=== PATIENT | male | born 1950 | race Caucasian/White ===

== ENCOUNTER 2017-04-11 22:41 | Observation (INO) | payer MEDICARE, BC ==
[2017-04-11 23:42] LABS: ABS Basophils 0.1 10^3/ul (0-0.2); ABS Eosinophils 0.1 10^3/ul (0-0.6); ABS Lymphocytes 1.5 10^3/ul (1.0-4.8); ABS Monocytes 0.5 10^3/ul (0-0.8); ABS Neutrophils 3.2 10^3/ul (1.5-7.7); ABS Nucleated RBC 0 10^3/ul; Eosinophil % 2.6 % (0-6); Hematocrit 39 % (42-52); Lymphocyte % 27.9 % (25-47); Mean Corpuscular HGB Conc 34 g/dl (31-36); Mean Corpuscular Hemoglobin 31 pg (27-31); Mean Corpuscular Volume 92 fL (80-94); Mean Platelet Volume 8 um3 (7.4-10.4); Nucleated Red Blood Cells % 0; Platelet Count 189 10^3/ul (150-450); Red Blood Count 4.22 10^6/ul (4.0-5.4); Red Cell Distribution Width 14 % (10.5-15); White Blood Count 5.3 10^3/ul (3.5-10.8)
[2017-04-11 23:53] LABS: INR 0.94 (0.77-1.02)
[2017-04-11 23:58] LABS: EGFR Non-African American 95.6 (>60)
--- NOTE | 2017-04-12 01:06 | ED ---
Cezar Brown Nikita, scribed for Jez Solomon MD on 04/11/17 at 2343 . GI/ HPI - HPI Summary HPI Summary: This patient is a 66 year old M presenting to ED with a chief complaint of GI bleed since yesterday. The CC is described as with cramping. The patient rates the pain 1/10 in severity. Symptoms aggravated by nothing. Symptoms alleviated by nothing. Patient reports diarrhea (dark stool, nancy red blood only with BM, 2x yesterday, 2x in the morning, 2x this evening). Patient denies CP, N/V, SOB, chills, and fever. He reports he is not on any blood thinners or protonix. PMHx of hemorrhoids, diverticulitis (bleeding now is similar to previous episode with diverticulitis). - History of Current Complaint Chief Complaint: EDGIBleed Time Seen by Provider: 04/11/17 23:14 Stated Complaint: RECTAL BLEEDING Hx Obtained From: Patient Onset/Duration: Started Days Ago, Still Present Timing: Intermittent Current Severity: Mild Vaginal Bleeding Description: Clots - nancy red with dark stool Pain Intensity: 1 Associated Signs and Symptoms: Positive: Other: - Patient reports diarrhea ( dark stool, nancy red blood only with BM, 2x yesterday, 2x in the morning, 2x this evening). Patient denies CP, N/V, SOB, chills, and fever. - Additional Pertinent History Primary Care Physician: [id number] - Allergy/Home Medications Allergies/Adverse Reactions: Allergies Allergy/AdvReac Type Severity Reaction Status Date / Time moxifloxacin [From Avelox] Allergy GI Upset Verified 04/11/17 23:00 Thxbnqg-Ifk-Uer Reductase Allergy Leg Cramps Verified 04/11/17 23:00 Inhibitor PMH/Surg Hx/FS Hx/Imm Hx Endocrine/Hematology History: Reports: Hx Diabetes - borderline Cardiovascular History: Reports: Other Cardiovascular Problems/Disorders - atrial flutter GI History: Reports: Hx Diverticulosis, Hx Gastroesophageal Reflux Disease, Hx Gastrointestinal Bleed Musculoskeletal History: Reports: Other Musculoskeletal History - spinal stenosis Sensory History: Reports: Hx Contacts or Glasses, Hx Vision Problem Opthamlomology History: Reports: Hx Contacts or Glasses, Hx Vision Problem - Immunization History Date of Tetanus Vaccine: utd Date of Influenza Vaccine: none Infectious Disease History: Yes Infectious Disease History: Denies: Traveled Outside the [place] in Last 30 Days - Family History Known Family History: Positive: Diabetes - Brother - Social History Alcohol Use: Occasionally Substance Use Type: Reports: None Smoking Status (MU): Former Smoker Review of Systems Negative: Fever, Chills Negative: Chest Pain Negative: Shortness Of Breath Positive: Diarrhea - diarrhea (dark stool, nancy red blood only with BM, 2x yesterday, 2x in the morning, 2x this evening), Other - GI bleed with cramping. Negative: Vomiting, Nausea All Other Systems Reviewed And Are Negative: Yes Physical Exam - Summary Physical Exam Summary: Appearance: Well appearing, no pain distress Skin: warm, dry, reflects adequate perfusion, No pallor Head/face: normal Eyes: EOMI, FLACO ENT: normal, moist mucous membranes Neck: supple, non-tender Respiratory: CTA, breath sounds present Cardiovascular: RRR, pulses symmetrical Abdomen: non-tender, soft Bowel: present Musculoskeletal: normal, strength/ROM intact, No LE edema Neuro: normal, sensory motor intact, A&Ox3 Rectal exam: Clots, brownish stool, not melena Triage Information Reviewed: Yes Vital Signs On Initial Exam: Initial Vitals Temp Pulse Resp BP Pulse Ox 97.6 F 61 14 115/72 100 04/11/17 22:44 04/11/17 22:44 04/11/17 22:44 04/11/17 22:44 04/11/17 22:44 Vital Signs Reviewed: Yes Diagnostics - Vital Signs Vital Signs Temp Pulse Resp BP Pulse Ox 04/11/17 23:30 61 14 114/71 96 04/11/17 23:06 64 13 106/78 97 04/11/17 23:03 61 11 98 04/11/17 22:44 97.6 F 61 14 115/72 100 - Laboratory Lab Results: Lab Results 04/11/17 04/11/17 04/11/17 Range/Units 23:15 23:15 23:15 WBC 5.3 (3.5-10.8) 10^3/ul RBC 4.22 (4.0-5.4) 10^6/ul Hgb 13.0 L (14.0-18.0) g/dl Hct 39 L (42-52) % MCV 92 (80-94) fL MCH 31 (27-31) pg MCHC 34 (31-36) g/dl RDW 14 (10.5-15) % Plt Count 189 (150-450) 10^3/ul MPV 8 (7.4-10.4) um3 Neut % (Auto) 59.8 (38-83) % Lymph % (Auto) 27.9 (25-47) % Gem % (Auto) 8.6 H (0-7) % Eos % (Auto) 2.6 (0-6) % Baso % (Auto) 1.1 (0-2) % Absolute Neuts (auto) 3.2 (1.5-7.7) 10^3/ul Absolute Lymphs (auto) 1.5 (1.0-4.8) 10^3/ul Absolute Monos (auto) 0.5 (0-0.8) 10^3/ul Absolute Eos (auto) 0.1 (0-0.6) 10^3/ul Absolute Basos (auto) 0.1 (0-0.2) 10^3/ul Absolute Nucleated RBC 0 10^3/ul Nucleated RBC % 0 INR (Anticoag Therapy) 0.94 (0.77-1.02) Sodium 137 (133-145) mmol/L Potassium 3.8 (3.5-5.0) mmol/L Chloride 106 (101-111) mmol/L Carbon Dioxide 24 (22-32) mmol/L Anion Gap 7 (2-11) mmol/L BUN 26 H (6-24) mg/dL Creatinine 0.81 (0.67-1.17) mg/dL Est GFR ( Amer) 123.0 (>60) Est GFR (Non-Af Amer) 95.6 (>60) BUN/Creatinine Ratio 32.1 H (8-20) Glucose 96 (70-100) mg/dL Lactic Acid (0.5-2.0) mmol/L Calcium 9.0 (8.6-10.3) mg/dL Total Bilirubin 0.40 (0.2-1.0) mg/dL AST 19 (13-39) U/L ALT 19 (7-52) U/L Alkaline Phosphatase 57 (34-104) U/L Total Protein 6.5 (6.4-8.9) g/dL Albumin 3.8 (3.2-5.2) g/dL Globulin 2.7 (2-4) g/dL Albumin/Globulin Ratio 1.4 (1-3) Blood Type Antibody Screen 04/11/17 04/11/17 Range/Units 23:15 23:15 WBC (3.5-10.8) 10^3/ul RBC (4.0-5.4) 10^6/ul Hgb (14.0-18.0) g/dl Hct (42-52) % MCV (80-94) fL MCH (27-31) pg MCHC (31-36) g/dl RDW (10.5-15) % Plt Count (150-450) 10^3/ul MPV (7.4-10.4) um3 Neut % (Auto) (38-83) % Lymph % (Auto) (25-47) % Gem % (Auto) (0-7) % Eos % (Auto) (0-6) % Baso % (Auto) (0-2) % Absolute Neuts (auto) (1.5-7.7) 10^3/ul Absolute Lymphs (auto) (1.0-4.8) 10^3/ul Absolute Monos (auto) (0-0.8) 10^3/ul Absolute Eos (auto) (0-0.6) 10^3/ul Absolute Basos (auto) (0-0.2) 10^3/ul Absolute Nucleated RBC 10^3/ul Nucleated RBC % INR (Anticoag Therapy) (0.77-1.02) Sodium (133-145) mmol/L Potassium (3.5-5.0) mmol/L Chloride (101-111) mmol/L Carbon Dioxide (22-32) mmol/L Anion Gap (2-11) mmol/L BUN (6-24) mg/dL Creatinine (0.67-1.17) mg/dL Est GFR ( Amer) (>60) Est GFR (Non-Af Amer) (>60) BUN/Creatinine Ratio (8-20) Glucose (70-100) mg/dL Lactic Acid 0.7 (0.5-2.0) mmol/L Calcium (8.6-10.3) mg/dL Total Bilirubin (0.2-1.0) mg/dL AST (13-39) U/L ALT (7-52) U/L Alkaline Phosphatase (34-104) U/L Total Protein (6.4-8.9) g/dL Albumin (3.2-5.2) g/dL Globulin (2-4) g/dL Albumin/Globulin Ratio (1-3) Blood Type O Positive Antibody Screen Pending Result Diagrams: 04/11/17 23:15 04/11/17 23:15 Lab Statement: Any lab studies that have been ordered have been reviewed, and results considered in the medical decision making process. Re-Evaluation - Re-Evaluation First Eval Change: Improved - no repeat bleeding GIGU Course/Dx - Course Course Of Treatment: BRB per rectum. ASA only. Hx of diverticular bleeds in past. No pain or ongoing bleeding. Hbg 13. Will admit for further, GI eval. - Diagnoses Differential Diagnoses - Male: Other - lower GI bleed -- diverticular, AVM, Int hemorrhoid Provider Diagnoses: Lower GI bleeding, Diverticulosis of colon - Physician Notifications Discussed Care Of Patient With: Minor Hewitt Time Discussed With Above Provider: 00:06 Instructed by Provider To: Other - Consulted Dr. Hewitt who accepts the patient for admission. Discharge - Discharge Plan Condition: Guarded Disposition: ADMITTED TO [facility] Referrals: Paul Cole MD [Primary Care Provider] - The documentation as recorded by the Cezar barraza Nikita accurately reflects the service I personally performed and the decisions made by , Jez Solomon MD.
[2017-04-12] MEDS: D5NS 0.9% 1000 ML BAG* 1,000 ML IV SCH ×3 (02:09→22:20)
[2017-04-12] MEDS ORDERED: Morphine INJ* 2 MG/ML 1 ML CARPUJECT ONE (03:52)
[2017-04-12] MEDS: Morphine INJ* 2 MG/ML 1 ML CARPUJECT IV PRN ×2 (04:06→08:47)
[2017-04-12] MEDS: Levothyroxine TAB* 88 MCG TAB PO SCH (05:33)
[2017-04-12 06:08] LABS: ABS Basophils 0.1 10^3/ul (0-0.2); ABS Eosinophils 0.2 10^3/ul (0-0.6); ABS Lymphocytes 1.2 10^3/ul (1.0-4.8); ABS Monocytes 0.5 10^3/ul (0-0.8); ABS Neutrophils 3.5 10^3/ul (1.5-7.7); ABS Nucleated RBC 0 10^3/ul; Eosinophil % 2.7 % (0-6); Hematocrit 35 % (42-52); Hemoglobin 12.1 g/dl (14.0-18.0); Lymphocyte % 22.6 % (25-47); Mean Corpuscular HGB Conc 35 g/dl (31-36); Mean Corpuscular Hemoglobin 32 pg (27-31); Mean Corpuscular Volume 92 fL (80-94); Mean Platelet Volume 8 um3 (7.4-10.4); Nucleated Red Blood Cells % 0; Platelet Count 181 10^3/ul (150-450); Red Blood Count 3.76 10^6/ul (4.0-5.4); Red Cell Distribution Width 14 % (10.5-15); White Blood Count 5.5 10^3/ul (3.5-10.8)
[2017-04-12 06:27] LABS: EGFR Non-African American 86.9 (>60)
[2017-04-12] MEDS: (Saw Palmetto Fruit [Saw Palmetto] 450 MG) PO SCH (08:43)
[2017-04-12] MEDS: Pregabalin CAP(*) 50 MG PO SCH ×3 (08:47→19:48)
[2017-04-12] MEDS: Diltiazem TAB* 30 MG PO SCH ×2 (08:47→19:42)
--- NOTE | 2017-04-12 10:42 | PN ---
Hospitalist Progress Note Date of Service: 04/12/17 I have seen and examined Mr. Flores and assume his care today. He has had 4 bloody bowel movements since midnight and reports bright red blood filling the toilet bowl. Complains of abdominal cramping. He remains hemodynamically stable. Hgb 12.1 this morning, 13 at admission. Insert 2nd peripheral IV. Keep active type and screen. Consult GI; I discussed case with Dr. Astudillo.
[2017-04-12 13:36] LABS: ABS Basophils 0 10^3/ul (0-0.2); ABS Eosinophils 0.1 10^3/ul (0-0.6); ABS Lymphocytes 1.5 10^3/ul (1.0-4.8); ABS Monocytes 0.5 10^3/ul (0-0.8); ABS Neutrophils 4.5 10^3/ul (1.5-7.7); ABS Nucleated RBC 0 10^3/ul; Eosinophil % 1.7 % (0-6); Hematocrit 35 % (42-52); Hemoglobin 11.5 g/dl (14.0-18.0); Lymphocyte % 22.7 % (25-47); Mean Corpuscular HGB Conc 33 g/dl (31-36); Mean Corpuscular Hemoglobin 31 pg (27-31); Mean Corpuscular Volume 93 fL (80-94); Mean Platelet Volume 8 um3 (7.4-10.4); Nucleated Red Blood Cells % 0; Platelet Count 169 10^3/ul (150-450); Red Blood Count 3.72 10^6/ul (4.0-5.4); Red Cell Distribution Width 14 % (10.5-15); White Blood Count 6.7 10^3/ul (3.5-10.8)
--- NOTE | 2017-04-12 15:10 | CONS ---
CC: Dr. Cole; Dr. Marcum at [facility]* CONSULTATION REPORT: DATE OF CONSULT: 04/12/17 REQUESTING PHYSICIAN: Dr. Rodrigues. INDICATION FOR CONSULTATION: Lower GI bleed, hemorrhage of rectum and anus. NARRATIVE: Mr. Flores is a very pleasant 66-year-old gentleman who has a very long history of diverticular bleeding in the past. It appears that his last episode of diverticular bleeding was in 2015. Prior to that he had an episode in 2013 and it appears 2 episodes in 2013 and likely 1 episode in 2011. He did have a colonoscopy with Dr. Irvin in 2013, at which time a polyp was removed and severe diverticulosis was noted. He also tells me that he had a colonoscopy with Dr. Marcum in 2012, at which time a polyp was removed. I performed a flexible sigmoidoscopy in 2015, which revealed severe diverticulosis. The patient states that he was in his normal state of good health until Thursday evening. He had been out ploughing snow, shoveling, feeling very well. Thursday evening he developed abdominal gas and pains, which is unusual for his diverticular bleeding, then he had loose stools that were bright red blood. He continued to pass bright red blood per rectum until last night when he came to the emergency room. He denies any dizziness or lightheadedness. The gas distention and pain have continued, but it is mild to moderate in nature. He denies any new medications. He denies any nonsteroidals. No new antihypertensives. He states that he drinks a fair amount of fluid every day to stay well hydrated. No nausea, no vomiting, no fevers, no chills. Currently , he is feeling better. He states that he has not had a bowel movement since 7: 00 a.m. this morning. This is approximately 5-1/2 hours later. He does have some slight gas and distention, but better than before. He is hungry. PAST MEDICAL HISTORY: Significant for; 1. GERD. 2. Hiatal hernia repair. 3. Paroxysmal AFib. ALLERGIES: MOXIFLOXACIN. FAMILY HISTORY: Diabetes. SOCIAL HISTORY: He does not smoke. He rarely drinks alcohol. REVIEW OF SYSTEMS: Twelve systems were reviewed and other than that mentioned in the HPI were unremarkable. PHYSICAL EXAM: Vital Signs: Temperature is 98.0, blood pressure is 107/56, pulse is 62. General: Well-appearing male, lying flat in bed, alert, oriented , pleasant, and fluent. HEENT: Mucous membranes are moist without lesions, ulcers, or exudate. Neck: Supple. Trachea is midline. Head is normocephalic , atraumatic. Lymph nodes: No supraclavicular or cervical lymphadenopathy. Heart: Regular rate and rhythm. Lungs: Clear to auscultation bilaterally. No wheezes, rales or rhonchi. Abdomen: Positive bowel sounds. Soft, very mild discomfort, not tender to palpation. No rebound, no guarding, no masses and no distention. Skin: Warm and dry and well perfused. LABORATORY DATA: Of note, white count 5.5, platelets of 181,000, hemoglobin went from 13 to 12, BUN is 24, creatinine 0.88. ASSESSMENT AND PLAN: This is a very pleasant 66-year-old gentleman with long history of diverticular bleeding in the past. He now presents with hemorrhage of rectum and anus with a slightly decreased hemoglobin. He is feeling better at this time. He has not had a bowel movement in the past 5-1/2 to 6 hours. Given his history of diverticular bleeding in the past that would be my leading etiology; however, he did have pain at this time associated with it, which is unusual for him. I do wonder if he could have had an episode of ischemic colitis, given his strenuous activity on Thursday. However, he states that he has done this before also with no ill effects, but ischemic colitis could be a possibility. I doubt a polyp or a colorectal cancer as he has had at least 2 colonoscopies in the past 5 years plus a sigmoidoscopy. I doubt a colitis such as viral or inflammatory. Given the fact that he is feeling better at this time and his bleeding has definitely slowed down, I would recommend we continue monitoring him very closely, IV fluids, frequent CBC checks. I would like to increase his diet. I do not think he needs a repeat procedure colonoscopy or flexible sigmoidoscopy at this time. He states he does have one scheduled with his outpatient certified adaptive physical educator, Dr. Marcum, in a few months any ways. Maybe this can be moved up a bit. We will continue to follow him closely. I did discuss with the patient and his family members what we may do if his bleeding picks up again including prepping him for a colonoscopy versus a tagged RBC scan and thus we will continue to follow along very closely. [id number]/[facility] #: [id number] [facility]PITALBuffy
--- NOTE | 2017-04-12 20:14 | HP ---
CC: Dr. Cole, [place]; Dr. Marcum [place] HISTORY AND PHYSICAL: DATE OF ADMISSION: 04/12/17 CHIEF COMPLAINT: Blood per rectum. HISTORY OF PRESENT ILLNESS: Mr. Flores is a 66-year-old man with history of diverticulosis who noted blood in the stool 2 times a day prior to admission and 4 times a day on admission. It appeared to be blood mixed with a little bit of stool. The hematochezia was painless, but associated with some cramping. Overall, he has been feeling well, eating and drinking well without any weight loss or nausea. The patient was last admitted to this hospital in September of 2015 with a lower GI bleed. At that point, he had conservative treatment and resolved without any intervention. He has had recurrent diverticular bleeds and one time had a colonoscopy with cauterization to stop it. PAST MEDICAL HISTORY: Includes atrial flutter, hypothyroidism, diverticulosis with bleeding and glaucoma. PAST SURGICAL HISTORY: Hernia repair, left inguinal region. MEDICATIONS ON ADMISSION: 1. Diltiazem 15 mg p.o. b.i.d. 2. Levothyroxine 88 mcg p.o. daily. ALLERGIES: MOXIFLOXACIN and STATINS. FAMILY HISTORY: Notable for mother of intracranial hemorrhage. Father of lymphoma. SOCIAL HISTORY: He is retired, working for [employer]. He is , he has 4 children. His is his healthcare proxy. He quit tobacco many years ago. Smoked at age 17 to 22. He drinks alcohol occasionally. No recreational drugs. REVIEW OF SYSTEMS: The patient denies any fevers, weight loss or anorexia. The patient denies any cough or hemoptysis. The patient denies any chest pain or palpitations. Remainder of all 14-point review of systems is negative other than mentioned in HPI. PHYSICAL EXAMINATION GENERAL: He is alert, in no acute distress. VITAL SIGNS: Temperature is 36.4, pulse 61, respirations 14, blood pressure is 106/78, O2 sat is 96%. HEENT: Head is normocephalic, atraumatic. Sclerae anicteric. Pupils are equal , round and reactive to light and accommodation. Oropharynx is moist, no lesions. NECK: No JVD, no carotid bruits or no thyromegaly. LUNGS: Clear to auscultation and percussion bilaterally. HEART: Regular rate and rhythm without murmurs or gallops. ABDOMEN: Soft, nontender, positive bowel sounds. No hepatosplenomegaly. RECTAL EXAM: Documented by the emergency department physician, not repeated. NEUROLOGIC: Cranial nerves II through XII are intact. Motor strength is 5/5 throughout. Deep tendon reflexes are symmetric. He is alert and oriented x3. SKIN EXAM: No lesions, no rashes. LABORATORY DATA: Sodium 137, potassium 3.8, chloride 106, bicarb 24, BUN 26, creatinine 0.81, glucose 96, calcium 9.0, albumin 3.8, AST 19, ALT 19, bilirubin 0.4, INR is 0.94. White count 5.3, hemoglobin 13.0, hematocrit 39%, platelets are 189. ASSESSMENT AND PLAN: A 66-year-old man with recurrent lower GI bleed likely due to diverticulosis. The patient will be observed overnight and have serial hemoglobin and hematocrits. This will likely respond to time and conservative measures. If he continues to bleed or his hematocrit drops excessively, we will consult Gastroenterology, but I have not called them at this time. The patient has hypothyroidism and he will be continued on his normal dose of levothyroxine. Fluids, electrolytes. The patient is currently euvolemic, but we will keep him n.p.o. in case he needs a colonoscopy on Thursday. He will have intravenous normal saline to prevent dehydration. Code status is full. DVT prophylaxis will be with sequential compression devices avoiding heparin due to GI bleeding. [id number]/[facility] #: [id number] [facility]
[2017-04-13 03:46] LABS: ABS Basophils 0 10^3/ul (0-0.2); ABS Eosinophils 0.2 10^3/ul (0-0.6); ABS Lymphocytes 1.5 10^3/ul (1.0-4.8); ABS Monocytes 0.4 10^3/ul (0-0.8); ABS Neutrophils 2.5 10^3/ul (1.5-7.7); ABS Nucleated RBC 0 10^3/ul; Eosinophil % 4.7 % (0-6); Hematocrit 32 % (42-52); Hemoglobin 10.8 g/dl (14.0-18.0); Lymphocyte % 32.4 % (25-47); Mean Corpuscular HGB Conc 34 g/dl (31-36); Mean Corpuscular Hemoglobin 31 pg (27-31); Mean Corpuscular Volume 93 fL (80-94); Mean Platelet Volume 8 um3 (7.4-10.4); Nucleated Red Blood Cells % 0.1; Platelet Count 156 10^3/ul (150-450); Red Blood Count 3.44 10^6/ul (4.0-5.4); Red Cell Distribution Width 14 % (10.5-15); White Blood Count 4.7 10^3/ul (3.5-10.8)
[2017-04-13 03:57] LABS: EGFR Non-African American 86.9 (>60)
[2017-04-13] MEDS: Levothyroxine TAB* 88 MCG TAB PO SCH (05:01)
[2017-04-13] MEDS: Pregabalin CAP(*) 50 MG PO SCH (09:22)
[2017-04-13] MEDS: (Saw Palmetto Fruit [Saw Palmetto] 450 MG) PO SCH (09:24)
[2017-04-13 13:15] VITALS: BP 106/56
--- NOTE | 2017-04-14 13:41 | DS ---
DISCHARGE SUMMARY: DATE OF ADMISSION: 04/12/17 DATE OF DISCHARGE: 04/13/17 ADMITTING PROVIDER: Minor Hewitt MD PRIMARY CARE PHYSICIAN: Dr. Cole, [place]. PRIMARY OUTPATIENT BEATER LEAD: Marcio Pinedohrie. CONSULTING BEATER LEAD INPATIENT: Dorian Astudillo MD ATTENDING PHYSICIAN: Keith Coates MD CHIEF COMPLAINT: Blood per rectum. PRINCIPAL DIAGNOSIS: Hematochezia in the setting of known diverticular bleeding , now requiring transfusions or colonoscopy. HISTORY OF PRESENT ILLNESS/HOSPITAL COURSE: Briec Flores is a 66-year-old male with past medical history of diverticulosis who noted bright red blood in the stool the day prior to admission and 4 times on the day of admission. It was painless, but later associated with some cramping in his abdomen, otherwise feeling well. He was evaluated by Dr. Dorian Astudillo of Gastroenterology, who did not feel like a colonoscopy was indicated. His initial hemoglobins were 13.0, hematocrit 39, slowly downtrended to 10.8/32 on the day of discharge. He did not have any bowel movement since hospital day #2, 7 a.m. He is eager for discharge with outpatient followup with Dr. Cole and his outpatient acute care clinical nurse specialist, Dr. Sruthi Marcum. He was never tachycardic. DISCHARGE MEDICATIONS: Include (no changes made): 1. Synthroid 88 mcg daily. 2. Lyrica 50 mg p.o. t.i.d. 3. Saw palmetto 450 mg p.o. daily. 4. Cholecalciferol 2000 units p.o. daily. 5. Cinnamon bark 1000 mg p.o. b.i.d. 6. Diltiazem 50 mg p.o. b.i.d. 7. Flaxseed oil 1000 mg p.o. daily. 8. Multivitamin/iron/folic acid 1 tab p.o. daily. 9. Vitamin B12/L-methylfolate/vitamin B6/vitamin B2 (Cerefolin) 1 tab p.o. daily. 10. Vitamin C/ascorbate calcium 500 mg p.o. daily. FOLLOWUP: Please follow up with Dr. Paul Cole of [facility] within 3 to 5 days of discharge and Dr[address] Sruthi Marcum within 2 weeks of discharge. DIET: Unchanged. ACTIVITY LEVEL: Unchanged. TIME SPENT: On discharge, 35 minutes. [id number]/[facility] #: [id number] [facility]
== END 2017-04-13 13:00 | disposition home or self-care (01) ==
LOC: ED 22:41 → MED 04-12 00:54
PROVIDERS: ADMIT Internal Medicine; ATTEND Internal Medicine
DX: K57.30 Diverticulosis of large intestine without perforation or abscess without bleeding (principal); K92.1 Melena; K21.9 Gastro-esophageal reflux disease without esophagitis; K44.9 Diaphragmatic hernia without obstruction or gangrene; I48.0 Paroxysmal atrial fibrillation; R19.7 Diarrhea, unspecified; Z87.891 Personal history of nicotine dependence
CPT/HCPCS: 36415; 80048; 80053; 83605; 83735; 85025; 85610; 86850; 86900; 86901; 96365; 96375; 99284; A9270-GY; G0378; J2270